=== PATIENT | male | born 1995 | race African-American/Black ===

== ENCOUNTER 2024-10-19 11:48 | Emergency (ER) | payer OTHER ==
[~2024-10-19] VITALS: Ht 188 cm; Wt 88.6 kg
[2024-10-19 12:01] VITALS: O2SAT 98
[2024-10-19] MEDS: LIDOCAINE HCL 1% 20ML VIAL INFIL ONE (16:24)
[2024-10-19 18:07] VITALS: BP 130/83; PULSE 75; RESP 17; TEMP 36.8; O2SAT 100
== END 2024-10-19 18:07 | disposition home or self-care (01) ==
LOC: ER 11:56
DX: S63.254A Unspecified dislocation of right ring finger, initial encounter (principal); X58.XXXA Exposure to other specified factors, initial encounter; Y93.89 Activity, other specified; Y92.89 Other specified places as the place of occurrence of the external cause; Y99.8 Other external cause status
CPT/HCPCS: 73120; 73140; 26770; 99284; J3490; Z7610